=== PATIENT | female | born 1960 | race Caucasian/White ===

== ENCOUNTER 2017-05-19 04:49 | Outpatient (CLI) | payer MEDICARE | END 2017-05-19 23:59 | disposition home or self-care (01) | LOC: DIABETIC 04:49 | PROVIDERS: ATTEND General Practice | DX: E11.9 Type 2 diabetes mellitus without complications (principal) | CPT/HCPCS: G0108 ==

== ENCOUNTER 2017-09-08 04:37 | Outpatient (CLI) | payer MEDICARE | END 2017-09-08 23:59 | disposition home or self-care (01) | LOC: DIABETIC 04:37 | PROVIDERS: ATTEND General Practice | DX: E11.9 Type 2 diabetes mellitus without complications (principal); Z79.899 Other long term (current) drug therapy | CPT/HCPCS: G0108 ==

== ENCOUNTER 2018-01-10 02:00 | Outpatient (CLI) | payer MEDICARE | END 2018-01-10 23:59 | disposition home or self-care (01) | LOC: DIABETIC 02:00 | PROVIDERS: ATTEND General Practice | DX: E11.9 Type 2 diabetes mellitus without complications (principal); Z79.82 Long term (current) use of aspirin; Z88.0 Allergy status to penicillin; Z79.899 Other long term (current) drug therapy | CPT/HCPCS: G0108 ==

== ENCOUNTER 2021-03-08 07:07 | Inpatient (IN) | payer MEDICARE ==
[2021-03-01 15:00] LABS: BASOPHILS # (AUTO) 0.1 X10'3 (0-0.2); BASOPHILS % (AUTO) 1.4 % (0-1); EOSINOPHILS # (AUTO) 0.3 X10'3 (0-0.9); EOSINOPHILS % (AUTO) 5.7 % (0-6); HEMATOCRIT 39.8 % (35.0-45.0); HEMOGLOBIN 13.5 g/dl (12.0-16.0); LYMPHOCYTES # (AUTO) 2.1 X10'3 (1.1-4.8); LYMPHOCYTES % (AUTO) 39.3 % (21-51); MEAN CORPUSCULAR HEMOGLOBIN 30.7 PG (27.0-31.0); MEAN CORPUSCULAR HGB CONC 34.1 g/dL (33.0-36.5); MEAN CORPUSCULAR VOLUME 90.1 FL (78-98); MONOCYTES # (AUTO) 0.3 X10'3 (0-0.9); MONOCYTES % (AUTO) 6.3 % (2-12); NEUTROPHILS # (AUTO) 2.5 X10'3 (1.8-7.7); NEUTROPHILS % (AUTO) 47.3 % (42-75); PLATELET COUNT 277 X10'3 (140-440); RED BLOOD COUNT 4.41 X10'6 (4.20-5.60); RED CELL DISTRIBUTION WIDTH 13.7 % (11.5-14.5); WHITE BLOOD COUNT 5.2 X10'3 (4.5-11.0)
[2021-03-01 15:16] LABS: ALANINE AMINOTRANSFERASE 33 U/L (12-78); ALBUMIN/GLOBULIN RATIO 1.1 (1.1-1.5); ALKALINE PHOSPHATASE 54 IU/L (46-116); ANION GAP 10 (8-16); ASPARTATE AMINO TRANSFERASE 20 U/L (10-37); BILIRUBIN,TOTAL 0.3 MG/DL (0.1-1.0); BLOOD UREA NITROGEN 21 MG/DL (7-18); BUN/CREATININE RATIO 22.6 (6.6-38.0); CALCIUM 10.4 MG/DL (8.5-10.1); CHLORIDE 103 MMOL/L (99-107); CREATININE 0.93 MG/DL (0.40-0.90); GLUCOSE 111 MG/DL (70-104); SODIUM 139 MMOL/L (135-145); TOTAL CARBON DIOXIDE 26.5 MMOL/L (24-32); TOTAL PROTEIN 7.8 G/DL (6.4-8.2); eGFR 62 ML/MIN
[2021-03-08] VITALS (18 sets, daily range): BP systolic 127–158; BP diastolic 70–104
[~2021-03-08] VITALS: Ht 175.3 cm; Wt 115.7 kg
[~2021-03-08 07:07] MED LIST: ASCO-139 PO; ASPI-611 PO; BACL-11 PO; CETI10TA15 PO; CHOL500050 PO; CLON0.1T PO; DICL75TA5 PO; ESCI20TA39 PO; HYDR12.55 PO; LEVO50TA8 PO; LIOT5TAB10 PO; LOSA100T57 PO; LYSI500T11 PO; MELA1LIQ PO; MONT-40 PO; PLAN450C PO; POTA-82 PO; TURM500C4 PO; cefazolin/dext.iso 2gm/50ml IV ONE; famotidine 20mg tablet PO ONE; ringers solution, lacted 1,000 ML IV SCH; vancomycin 1,500 MG in NS 300ml IV soln IV ONE
[2021-03-08] MEDS ORDERED: clindamycin 600mg/D5W 50ml 50 ML IV ONE (07:55)
[2021-03-08] MEDS: clindamycin-Cleocin 900mg/D5W 50 ML IV ONE ×2 (08:32→08:46)
[2021-03-08] MEDS ORDERED: ROPIVAcaine 0.5% (5mg/ml) 30ml vial ONE ×2 (09:16→10:51)
[2021-03-08] MEDS ORDERED: ketorolac trometh. 30mg/ml inj. ONE (09:16)
[2021-03-08] MEDS ORDERED: diphenhydrAMINE 50 mg/ml inj ONE (09:18)
[2021-03-08] MEDS ORDERED: sevoflurane 250ml liquid IH ONE (10:08)
[2021-03-08] MEDS ORDERED: fentaNYL/PF 50MCG/1 ML 2ML syringe ONE (10:11)
[2021-03-08] MEDS ORDERED: rocuronium 10mg/ml inj IV ONE (10:51)
[2021-03-08] MEDS ORDERED: propofol inj 20 ML IV ONE (10:51)
[2021-03-08] MEDS ORDERED: LIDOcaine 2% (20mg/ml) 5ml vial ONE (10:51)
[2021-03-08] MEDS ORDERED: midazolam 1 mg/ML 2ml injection ONE (10:51)
[2021-03-08] MEDS ORDERED: LIDOcaine 1%/PF 5ML 10 MG/ML VIAL ONE (10:51)
[2021-03-08] MEDS ORDERED: ceFAZolin 1000mg inj ONE ×2 (11:03)
[2021-03-08] MEDS ORDERED: ondansetron/PF 4mg/2ml inj ONE (11:09)
[2021-03-08] MEDS ORDERED: dexamethasone sod phosphate 4mg/ml inj. ONE (11:09)
[2021-03-08] MEDS ORDERED: ondansetron/PF 4mg/2ml inj IV PRN ×2 (11:15→12:15)
[2021-03-08] MEDS ORDERED: morphine 2 MG/ML inj. syringe IV PRN ×2 (11:15)
[2021-03-08] MEDS ORDERED: morphine 4 MG/ML inj SYRINge IV PRN ×2 (11:15)
[2021-03-08] MEDS ORDERED: ringers solution, lacted 1,000 ML IV SCH (11:15)
[2021-03-08] MEDS ORDERED: proCHLORperazine 10 MG/2 ml inj IV PRN (11:15)
[2021-03-08] MEDS ORDERED: hydrALAZINE 20mg/ml inj. IV PRN (11:15)
[2021-03-08] MEDS ORDERED: labetalol 20mg/4ml (5mg/ml) syringe IV PRN (11:15)
[2021-03-08] MEDS ORDERED: ROPIVAcaine 0.2% (10 MG/5 ML) BOLUS INJECTION INTERSCALE PRN (11:15)
[2021-03-08] MEDS ORDERED: meperidine/PF 25mg/ml syringe IV PRN (11:15)
[2021-03-08] MEDS ORDERED: ROPIVAcaine 0.2%/PF PUMP/bolus 545 ML INTERSCALE SCH (11:15)
[2021-03-08] MEDS ORDERED: acetaminophen 1,000mg/100ml IV 100 ML IV PRN (11:15)
[2021-03-08] MEDS ORDERED: ePHEDrine 50MG/ML INJ. ONE (11:17)
[2021-03-08] MEDS ORDERED: glycopyrrolate 0.2mg/ml inj ONE (11:57)
[2021-03-08] MEDS ORDERED: neostigmine methylsulfate 1 MG/ML 10ml vial ONE (11:57)
--- NOTE | 2021-03-08 12:09 | NUR ---
Received from OR via BED, accompanied by Anesthesiologist DR STOLL and report given by Anesthesiologist. PT DROWSY, DENIES PAIN. RIGHT SHOULDER W/DRSG CDI, SHOULDER WRAP, ICE PACK, IMMOBILIZER IN PLACE. Addendum: 03/08/21 at 1242 by Dianne Lee RN Amended: Links added.
[2021-03-08] MEDS ORDERED: HYDROmorphone inj. 0.5 MG/0.5 ML DISP.SYRIN IV PRN (12:15)
[2021-03-08] MEDS ORDERED: bisacodyl 10mg suppository rectal RC PRN (12:15)
[2021-03-08] MEDS: potassium cl 20mEq in 1/2 NS 1,000 ML IV SCH ×2 (12:15→20:13)
[2021-03-08] MEDS ORDERED: acetaminophen 325mg tablet PO PRN (12:15)
[2021-03-08] MEDS ORDERED: magnesium hydroxide 30ml (MOM) UD suspension PO PRN (12:15)
[2021-03-08] MEDS ORDERED: HYDROmorphone 1 mg/ml syringe IV PRN (12:15)
[2021-03-08] MEDS ORDERED: oxyCODONE IR 5mg (immed. release) tablet PO PRN (12:15)
[2021-03-08] MEDS ORDERED: diphenhydrAMINE 25mg capsule PO PRN ×2 (12:15)
--- NOTE | 2021-03-08 13:39 | NUR ---
Report called to receiving nurse. Transferred via BED, NO Belongings, BLL, CALL LIGHT GIVEN, SIDE RAILS UP X 2, RECEIVING RN AT BEDSIDE TO RECEIVE PT. PTS SISTER PRESENT. Special Issues communicated to receiving nurse. YES. Addendum: 03/08/21 at 1358 by Dianne Lee RN Amended: Links added.
[2021-03-08] MEDS: acetaminophen 325mg tablet PO SCH ×2 (14:00→20:13)
--- NOTE | 2021-03-08 14:00 | NUR ---
patient arrived to the unit [id number] with no signs of distress. Patients sister is at bedside, OR nurse explained pain block medication to patinet and myself. Belongings placed in closet area. Patinetis resting comfortably with no complaints of pain
[2021-03-08] MEDS ORDERED: baclofen 10mg tablet PO PRN (16:00)
[2021-03-08] MEDS: ceFAZolin/D5W- 1GM premix 50 ML IV SCH (19:16)
[2021-03-08] MEDS ORDERED: vancomycin/NS 1 GM ADD-VANTAGE 250 ML IV SCH (20:00)
[2021-03-08] MEDS ORDERED: non-formulary drug (Diclofenac Sodium 1 TAB) PO SCH (20:00)
[2021-03-08] MEDS ORDERED: sennosides 8.6mg tablet PO SCH (21:00)
[2021-03-08] MEDS ORDERED: cloNIDine 0.1 mg tablet PO SCH (21:00)
[2021-03-09] VITALS: BP 139/72
[2021-03-09] MEDS: oxyCODONE IR 5mg (immed. release) tablet PO PRN ×2 (00:18→11:03)
[2021-03-09] MEDS: ceFAZolin/D5W- 1GM premix 50 ML IV SCH (03:16)
[2021-03-09] MEDS: acetaminophen 325mg tablet PO SCH ×2 (03:17→08:31)
--- NOTE | 2021-03-09 03:40 | NUR ---
MD PAGED S/P PT REFUSAL OF VANCOMYCIN, MD DID NOT RETURN CALL AND SUBSEQUENTLY, RN WAS UNABLE TO REQUEST CHANGE OF ORDER, PT SAYS SHE WON'T TAKE IT DUE TO PREVIOUS REACTION BEFORE SURGERY, PT LATER HAD BENADRYL WHICH SHE SAID BURNED AND DIDN'T HELP, PT IS ADAMANT ABOUT NOT TAKING VANC RN CALLED PHARMACY FOR ALTERNATIVES, ALLERGIES CHECKED AGAINST ALTERNATIVE (ZYVOX 600MG BID), HOWEVER RN WAS UNABLE TO RELAY MESSAGE TO MD DUE TO NO CALL BACK, WILL PASS ON IN SHIFT REPORT
[2021-03-09] MEDS: potassium cl 20mEq in 1/2 NS 1,000 ML IV SCH ×2 (04:15→12:15)
--- NOTE | 2021-03-09 06:35 | NUR ---
Patient in room [facility]. I have received report from BUSTER Clark and had the opportunity to ask questions and assume patient care.
[2021-03-09 06:37] LABS: BASOPHILS % (AUTO) 0.3 % (0-1); EOSINOPHILS % (AUTO) 0 % (0-6); LYMPHOCYTES # (AUTO) 1.1 X10'3 (1.1-4.8); LYMPHOCYTES % (AUTO) 10.4 % (21-51); MEAN CORPUSCULAR HEMOGLOBIN 30.8 PG (27.0-31.0); MEAN CORPUSCULAR HGB CONC 34.1 g/dL (33.0-36.5); MEAN CORPUSCULAR VOLUME 90.4 FL (78-98); MONOCYTES # (AUTO) 0.8 X10'3 (0-0.9); MONOCYTES % (AUTO) 7.4 % (2-12); NEUTROPHILS # (AUTO) 8.4 X10'3 (1.8-7.7); NEUTROPHILS % (AUTO) 81.9 % (42-75); PLATELET COUNT 259 X10'3 (140-440); RED BLOOD COUNT 3.88 X10'6 (4.20-5.60); RED CELL DISTRIBUTION WIDTH 13.7 % (11.5-14.5); WHITE BLOOD COUNT 10.2 X10'3 (4.5-11.0)
[2021-03-09 06:52] LABS: ANION GAP 9 (8-16); CHLORIDE 102 MMOL/L (99-107); POTASSIUM 4.6 MMOL/L (3.5-5.1); SODIUM 136 MMOL/L (135-145); TOTAL CARBON DIOXIDE 24.9 MMOL/L (24-32)
[2021-03-09 07:00] VITALS: BP 143/72
[2021-03-09] MEDS ORDERED: cholecalciferol (vitamin D3) 1,000 unit (25mcg) tablet PO SCH (08:00)
[2021-03-09] MEDS ORDERED: losartan 50mg tablet PO SCH (08:00)
[2021-03-09] MEDS ORDERED: ascorbic acid 500mg tablet PO SCH (08:00)
[2021-03-09] MEDS ORDERED: non-formulary drug (Lysine (l-Lysine) 2 TAB) PO SCH (08:00)
[2021-03-09] MEDS ORDERED: cetirizine 10mg tablet PO SCH (08:00)
[2021-03-09] MEDS ORDERED: montelukast 10mg tablet PO SCH (08:00)
[2021-03-09] MEDS ORDERED: ESCITALOPRAM OXALATE 5 MG TABLET PO SCH (08:00)
[2021-03-09] MEDS ORDERED: [UNRECOGNIZED DRUG - REMARK] PO SCH (08:00)
[2021-03-09] MEDS ORDERED: non-formulary drug (Aspirin (Aspir 81) 1 TAB) PO SCH (08:00)
[2021-03-09] MEDS ORDERED: HYDROchlorothiazide 12.5mg capsule PO SCH (08:00)
[2021-03-09] MEDS ORDERED: levoTHYROXINE 25mcg tablet PO SCH (08:00)
[2021-03-09] MEDS ORDERED: aspirin 325mg tablet PO SCH (08:30)
[2021-03-09 12:29] VITALS: BP 135/73
--- NOTE | 2021-03-09 13:36 | NUR ---
Primary Joint Consult: Pt status post joint surgery to right shoulder for primary osteoarthritis. NERIS provided verbal/written high protein diet education post surgery, w/ RD contact information. NERIS encouraged pt to contact in case of further questions or concerns. Addendum: 03/09/21 at [address] Amended: Links added. Addendum: 03/09/21 at [address] NERIS has reviewed and approves of note.
--- NOTE | 2021-03-09 14:02 | NUR ---
Patient alert and oriented in no apparent distress. Discussed with patient discharge teaching. Patient verbalizes understanding of teaching. Patient does not want to take home cold paks and states she has "polar ice therapy at home" and will use that instead of powder cold paks. IV dc'd.
--- NOTE | 2021-03-09 14:19 | NUR ---
Patient dc'd home with all personal belongings escorted out in wheelchair accompanied by sister and x1 staff. Addendum: 03/09/21 at 1427 by Gisell Gaffney RN Patient dc'd with ONQ ball and verbalized understanding of ONQ ball management.
[2021-03-09] MEDS ORDERED: celeCOXIB 100mg capsule PO SCH (20:00)
[2021-03-10] MEDS ORDERED: liothyronine sod 5mcg tablet PO SCH (08:00)
[2021-03-10] MEDS ORDERED: acetaminophen 325mg tablet PO PRN (12:15)
== END 2021-03-09 14:20 | disposition home or self-care (01) | DRG 483 ==
LOC: PAS IN 07:07 → SUR 3N 13:41
PROVIDERS: ADMIT Orthopaedic Surgery; ATTEND Orthopaedic Surgery
PROC: 0LS30ZZ Reposition Right Upper Arm Tendon, Open Approach (ICD-10-PCS; 2021-03-08)
PROC: 3E0T3BZ Introduction of Anesthetic Agent into Peripheral Nerves and Plexi, Percutaneous Approach (ICD-10-PCS; 2021-03-08)
PROC: 0RRJ0JZ Replacement of Right Shoulder Joint with Synthetic Substitute, Open Approach (ICD-10-PCS; principal; 2021-03-08 10:08)
DX: M19.011 Primary osteoarthritis, right shoulder (principal); G89.29 Other chronic pain; M65.811 Other synovitis and tenosynovitis, right shoulder; Z79.899 Other long term (current) drug therapy; Z79.82 Long term (current) use of aspirin
CPT/HCPCS: 36415; 73020; 80051; 80053; 82948; 84443; 85025; 87081; 97161; 97530; G0378; J0690; J1100; J1200; J1885; J2250; J2405; J2704; J2710; J2795; J3010; J3370; J3480; J3490; J7040; J7120; U0003; U0005

== ENCOUNTER 2022-05-16 08:49 | Inpatient (IN) | payer MEDICARE, MEDICAID ==
[2022-05-11 10:59] LABS: BASOPHILS # (AUTO) 0.1 X10'3 (0-0.2); BASOPHILS % (AUTO) 1.1 % (0-1); EOSINOPHILS # (AUTO) 0.2 X10'3 (0-0.9); EOSINOPHILS % (AUTO) 3.8 % (0-6); LYMPHOCYTES # (AUTO) 1.6 X10'3 (1.1-4.8); LYMPHOCYTES % (AUTO) 31.3 % (21-51); MEAN CORPUSCULAR HEMOGLOBIN 30.4 PG (27.0-31.0); MEAN CORPUSCULAR HGB CONC 33.3 g/dL (33.0-36.5); MEAN CORPUSCULAR VOLUME 91.3 FL (78-98); MEAN PLATELET VOLUME 8.1 FL (7.4-10.4); MONOCYTES # (AUTO) 0.4 X10'3 (0-0.9); MONOCYTES % (AUTO) 8.1 % (2-12); NEUTROPHILS # (AUTO) 2.8 X10'3 (1.8-7.7); NEUTROPHILS % (AUTO) 55.7 % (42-75); PRE OP HEMATOCRIT 39.3 % (35.0-45.0); PRE OP HEMOGLOBIN 13.1 g/dL (12.0-16.0); PRE OP PLATELET COUNT 268 X10'3 (140-440); RED CELL DISTRIBUTION WIDTH 13.9 % (11.5-14.5)
[2022-05-11 11:19] LABS: ALBUMIN 3.8 G/DL (3.4-5.0); ALBUMIN/GLOBULIN RATIO 1.1 (1.1-1.5); ALKALINE PHOSPHATASE 56 IU/L (46-116); BLOOD UREA NITROGEN 19 MG/DL (7-18); BUN/CREATININE RATIO 20.2 (6.6-38.0); CALCIUM 9.7 MG/DL (8.5-10.1); CHLORIDE 105 MMOL/L (99-107); CREATININE 0.94 MG/DL (0.40-0.90); PRE OP ALT 37 U/L (30-65); PRE OP ANION GAP 6 (8-16); PRE OP AST 41 U/L (10-37); PRE OP BILIRUB, TOTAL 0.5 MG/DL (0.0-1.0); PRE OP GLUCOSE 111 MG/DL (70-104); PRE OP POTASSIUM 4.4 MMOL/L (3.4-5.1); PRE OP SODIUM 139 MMOL/L (135-145); TOTAL CARBON DIOXIDE 28.4 MMOL/L (24-32); TOTAL PROTEIN 7.2 G/DL (6.4-8.2); eGFR 61 ML/MIN
[2022-05-11 12:16] LABS: HEMOGLOBIN A1C 6.8 % (4.5-6.2)
[~2022-05-16] VITALS: Ht 175.3 cm; Wt 122.9 kg
[2022-05-16] VITALS (17 sets, daily range): BP systolic 103–169; BP diastolic 53–129
--- NOTE | 2022-05-16 07:00 | NUR ---
PT SHOWERED PER TOTAL JOINT PROTOCOL W/ CHLORAHEXIDINE SOAP. PT ALSO USED OINTMENT TO BILAT NARES AND STATES HE READ OVER TOTAL JOINT BOOKLET. PT STATES UNDERSTANDING.
--- NOTE | 2022-05-16 08:30 | NUR ---
TXA HELD PER DR BILL DUE TO PT HAVING A CLOTTING DISORDER. VANCO ALSO HELD DUE TO SEVERE ALLERGIC REACTION IN PAST. DR BILL AWARE.
[~2022-05-16 08:49] MED LIST changes: -ASPI-611 PO; +ASPI81TA52 PO; -BACL-11 PO; -MELA1LIQ PO; +MELA3TAB39 PO; -PLAN450C PO; -POTA-82 PO; +POTA99TA26 PO; -TURM500C4 PO; -cefazolin/dext.iso 2gm/50ml IV ONE; +tranexamic acid 650mg tablet PO ONE; -vancomycin 1,500 MG in NS 300ml IV soln IV ONE
[2022-05-16] MEDS ORDERED: cefazolin 2gm/D5W 100mL 100 ML IV ONE (10:45)
[2022-05-16] MEDS ORDERED: ROPIVAcaine 0.5% (5mg/ml) 30ml vial ONE ×2 (11:11→11:31)
[2022-05-16] MEDS ORDERED: fentaNYL/PF 50MCG/1 ML 2ML syringe ONE (11:30)
[2022-05-16] MEDS ORDERED: MIDAZolam 1 MG/ML 5ML VIAL ONE (11:31)
[2022-05-16] MEDS ORDERED: propofol inj 20 ML IV ONE (11:31)
[2022-05-16] MEDS ORDERED: meperidine/PF 25mg/ml syringe IV PRN ×3 (12:00)
[2022-05-16] MEDS ORDERED: ringers solution, lacted 1,000 ML IV SCH (12:00)
[2022-05-16] MEDS ORDERED: ROPIVAcaine 0.2% (10 MG/5 ML) BOLUS INJECTION INTERSCALE PRN (12:00)
[2022-05-16] MEDS ORDERED: morphine 4 MG/ML inj SYRINge IV PRN (12:00)
[2022-05-16] MEDS ORDERED: ondansetron/PF 4mg/2ml inj IV PRN ×2 (12:00→13:50)
[2022-05-16] MEDS ORDERED: morphine 2 MG/ML inj. syringe IV PRN (12:00)
[2022-05-16] MEDS ORDERED: ROPIVAcaine 0.2%/PF PUMP/bolus 545 ML INTERSCALE SCH (12:00)
[2022-05-16] MEDS ORDERED: proCHLORperazine 10 MG/2 ml inj IV PRN (12:00)
[2022-05-16] MEDS ORDERED: dexamethasone sod phosphate 4mg/ml inj. ONE (13:28)
[2022-05-16] MEDS ORDERED: ondansetron/PF 4mg/2ml inj ONE (13:28)
--- NOTE | 2022-05-16 13:46 | NUR ---
Received from OR via , accompanied by Anesthesiologist ANTONIO AND OR NURSE and report given by Anesthesiolgist. PT IS DROWSY YET REPSONDS TO VERBAL STIMULI. DENIES PAIN OR DISCOMFORT. 20G TO RT HAND. LEFT SHOULDER WITH ISLAND DRESSING AND PWDR PACK SLING; CDI. VSS Addendum: 05/16/22 at 1406 by Rosa Elena Aguilera RN Amended: Links added.
[2022-05-16] MEDS ORDERED: HYDROmorphone 1 mg/ml syringe IV PRN (13:50)
[2022-05-16] MEDS ORDERED: HYDROcodone/acetaminophen 10/325mg tab PO PRN ×2 (13:50)
[2022-05-16] MEDS ORDERED: bisacodyl 10mg suppository rectal RC PRN (13:50)
[2022-05-16] MEDS ORDERED: naloxone 0.4 mg/ml inj IV PRN (13:50)
[2022-05-16] MEDS ORDERED: HYDROmorphone inj. 0.5 MG/0.5 ML DISP.SYRIN IV PRN (13:50)
[2022-05-16] MEDS ORDERED: diphenhydrAMINE 25mg capsule PO PRN ×2 (13:50)
[2022-05-16] MEDS ORDERED: acetaminophen 325mg tablet PO PRN (13:50)
[2022-05-16] MEDS ORDERED: oxyCODONE IR 5mg (immed. release) tablet PO PRN ×2 (13:50)
[2022-05-16] MEDS ORDERED: Melatonin 3mg tablet PO PRN (13:50)
[2022-05-16] MEDS ORDERED: magnesium hydroxide 30ml (MOM) UD suspension PO PRN (13:50)
--- NOTE | 2022-05-16 15:18 | NUR ---
PATIENT TAKEN TO ORTHO FLOOR ROOM WITH ALL BELONGINGS AND HOOKED UP TO ALL MONITORS IN ROOM AND REPORT GIVEN TO RN WHO HAS TAKEN OVER PATIENT CARE. SISTER AT BEDSIDE Addendum: 05/16/22 at 1519 by Rosa Elena Aguilera RN Amended: Links added.
[2022-05-16] MEDS: acetaminophen 325mg tablet PO SCH ×2 (15:44→19:58)
[2022-05-16] MEDS: potassium cl 20mEq in 1/2 NS 1,000 ML IV SCH ×2 (15:48→21:50)
[2022-05-16] MEDS: ceFAZolin/D5W- 1GM premix 50 ML IV SCH (15:52)
--- NOTE | 2022-05-16 18:20 | NUR ---
Arrived on floor at 1500 with sister at bedside. Pain free. able to move fingers on surgical site. All extremeties warm with palpable pulses. Ambulated to br with asst x 1 gait steady. Q pump infusing with out difficulty. checked by recovery nurse. Denies pain. Sling on left arm intact.
[2022-05-16] MEDS ORDERED: non-formulary drug (Diclofenac Sodium 1 TAB) PO SCH (20:00)
[2022-05-16] MEDS ORDERED: cloNIDine 0.1 mg tablet PO SCH (21:00)
[2022-05-16] MEDS ORDERED: sennosides 8.6mg tablet PO SCH (21:00)
[2022-05-16] MEDS ORDERED: montelukast 10mg tablet PO SCH (21:00)
[2022-05-17] MEDS: ceFAZolin/D5W- 1GM premix 50 ML IV SCH (00:09)
[2022-05-17] MEDS: acetaminophen 325mg tablet PO SCH ×2 (02:02→09:18)
[2022-05-17 05:00] VITALS: BP 140/74
[2022-05-17] MEDS: potassium cl 20mEq in 1/2 NS 1,000 ML IV SCH (05:50)
[2022-05-17 06:29] LABS: BASOPHILS % (AUTO) 0.2 % (0-1); EOSINOPHILS % (AUTO) 0 % (0-6); HEMATOCRIT 38.7 % (35.0-45.0); HEMOGLOBIN 13.1 g/dl (12.0-16.0); LYMPHOCYTES # (AUTO) 0.8 X10'3 (1.1-4.8); LYMPHOCYTES % (AUTO) 7.7 % (21-51); MEAN CORPUSCULAR HEMOGLOBIN 30.7 PG (27.0-31.0); MEAN CORPUSCULAR HGB CONC 33.8 g/dL (33.0-36.5); MEAN PLATELET VOLUME 8.7 FL (7.4-10.4); MONOCYTES # (AUTO) 0.4 X10'3 (0-0.9); MONOCYTES % (AUTO) 4.1 % (2-12); NEUTROPHILS # (AUTO) 9.1 X10'3 (1.8-7.7); PLATELET COUNT 275 X10'3 (140-440); RED BLOOD COUNT 4.26 X10'6 (4.20-5.60); RED CELL DISTRIBUTION WIDTH 14.3 % (11.5-14.5); WHITE BLOOD COUNT 10.3 X10'3 (4.5-11.0)
[2022-05-17 06:37] LABS: ANION GAP 7 (8-16); CHLORIDE 102 MMOL/L (99-107); POTASSIUM 4.3 MMOL/L (3.5-5.1); SODIUM 134 MMOL/L (135-145); TOTAL CARBON DIOXIDE 25.2 MMOL/L (24-32)
--- NOTE | 2022-05-17 06:48 | NUR ---
Patient in room [facility]TH[facility] 4023. I have received report from Leidy/Lexii and had the opportunity to ask questions and assume patient care.
[2022-05-17 06:52] VITALS: BP 149/80
[2022-05-17] MEDS ORDERED: ascorbic acid 500mg tablet PO SCH (08:00)
[2022-05-17] MEDS ORDERED: cholecalciferol (vitamin D3) 1,000 unit (25mcg) tablet PO SCH (08:00)
[2022-05-17] MEDS ORDERED: HYDROchlorothiazide 12.5mg capsule PO SCH (08:00)
[2022-05-17] MEDS ORDERED: ESCITALOPRAM OXALATE 5 MG TABLET PO SCH (08:00)
[2022-05-17] MEDS ORDERED: levoTHYROXINE 25mcg tablet PO SCH (08:00)
[2022-05-17] MEDS ORDERED: non-formulary drug (Lysine (l-Lysine) 2 TAB) PO SCH (08:00)
[2022-05-17] MEDS ORDERED: cetirizine 10mg tablet PO SCH (08:00)
[2022-05-17] MEDS ORDERED: liothyronine sod 5mcg tablet PO SCH (08:00)
[2022-05-17] MEDS ORDERED: losartan 50mg tablet PO SCH (08:00)
[2022-05-17] MEDS ORDERED: aspirin 325mg tablet PO SCH (08:30)
[2022-05-17 09:30] VITALS: BP 138/75
--- NOTE | 2022-05-17 12:05 | NUR ---
Reviewed discharge instructions with patient. Patient verbalized understanding and was very familiar with after care as patient had shoulder surgery on the right side one year ago. Assisted patient with dressing. patient is alert, oriented and happy to discharge home. Confirmed discharge meds were available at the pharmacy. Patient was wheeled downstairs to be driven home by family/friend.
--- NOTE | 2022-05-17 12:45 | NUR ---
Joint surgery consult: Pt s/p L shoulder surgery this admit per EMR. Pt discharged prior to RD visit; written high protein diet ed w/ RD contact information mailed to pt home address provided in EMR. Addendum: 05/17/22 at [address] Amended: Links added.
[2022-05-18] MEDS ORDERED: acetaminophen 325mg tablet PO PRN (13:50)
== END 2022-05-17 12:00 | disposition home or self-care (01) | DRG 483 ==
LOC: PAS IN 08:49 → ORTHO 4S 15:21
PROVIDERS: ADMIT Orthopaedic Surgery; ATTEND Orthopaedic Surgery
PROC: 0LS40ZZ Reposition Left Upper Arm Tendon, Open Approach (ICD-10-PCS; 2022-05-16)
PROC: 3E0T3BZ Introduction of Anesthetic Agent into Peripheral Nerves and Plexi, Percutaneous Approach (ICD-10-PCS; 2022-05-16)
PROC: 0RRK0JZ Replacement of Left Shoulder Joint with Synthetic Substitute, Open Approach (ICD-10-PCS; principal; 2022-05-16 11:58)
DX: M19.012 Primary osteoarthritis, left shoulder (principal); M75.32 Calcific tendinitis of left shoulder; M75.22 Bicipital tendinitis, left shoulder; G89.29 Other chronic pain; M65.9 Synovitis and tenosynovitis, unspecified
CPT/HCPCS: 36415; 80051; 80053; 82948; 83036; 84443; 85025; 85610; 85730; 87081; 97110; 97161; 97530; A4615; G0378; J0690; J1100; J2250; J2405; J2704; J2795; J3010; J3480; J7120